=== PATIENT | male | born 1980 | race Caucasian/White ===

== ENCOUNTER 2018-10-27 18:42 | Inpatient (IN) | payer MEDICAID, OTHER ==
[~2018-10-27] VITALS: Ht 180.3 cm; Wt 91.1 kg
[2018-10-27] MEDS ORDERED: SOD CHLORIDE 0.9% 1,000 ML IV STA (19:13)
[2018-10-27] MEDS ORDERED: HYDROmorphONE 1 MG/ML SYG ONE (19:15)
[2018-10-27] MEDS ORDERED: ONDANSETRON 4 MG INJ ONE (19:15)
[2018-10-27] MEDS: CEFTRIAXONE 2 GM/50 ML (PMX) 50 ML IVPB ONE ×2 (19:22→20:41)
[2018-10-27] MEDS ORDERED: HYDROmorphONE 2 MG/ML SYG IV ONE (19:30)
[2018-10-27] MEDS ORDERED: ONDANSETRON 4 MG INJ IV ONE (19:30)
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
[2018-10-27] MEDS ORDERED: TETANUS IMMUNE GLOB 250 UNIT SYG IM ONE (21:00)
[2018-10-27] MEDS ORDERED: SOD CHLORIDE 0.9% 1,000 ML IV SCH (21:06)
[2018-10-27] MEDS ORDERED: ACETAMINOPHEN 325 MG TAB PO PRN (21:30)
[2018-10-27] MEDS ORDERED: ONDANSETRON 4 MG INJ IV PRN (21:30)
[2018-10-27] MEDS ORDERED: NACL 0.9% 3 ML SYG IV SCH (21:30)
[2018-10-27] MEDS: HYDROmorphONE 0.5 MG/0.5 ML SYG IV PRN (21:47)
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
[2018-10-27] MEDS ORDERED: HYDROmorphONE 1 MG/ML SYG IV ONE (23:00)
[2018-10-28] VITALS (20 sets, daily range): BP systolic 105–129; BP diastolic 53–79; PULSE 90–117; RESP 14–26; Ht 180.3 cm; Wt 91.1 kg
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
[2018-10-28] MEDS: HYDROmorphONE 0.5 MG/0.5 ML SYG IV PRN ×2 (01:53→05:58)
[2018-10-28] MEDS ORDERED: DESFLURANE 15 MIN ONE (07:00)
[2018-10-28] MEDS ORDERED: CEFAZOLIN 1 GM INJ ONE (07:00)
[2018-10-28] MEDS ORDERED: POLYMYXIN/BACITRACIN 1L IRRIG ONE ×2 (08:20→16:28)
--- NOTE | 2018-10-28 09:02 | PREAC ---
Date/Time of Note Date/Time of Note DATE: 10/28/18 TIME: 08:59 Anesthesia Eval and Record Evaluation Time Pre-Procedure Interview DATE: 10/28/18 TIME: 08:59 Age 38 Sex male NPO: 8 hrs Preoperative diagnosis Left arm, right leg fx Planned procedure ORIF L arm, R leg Past Medical History Past Medical History: None Surgery & Anesthesia Issues No known issue Meds Anticoagulation: No Beta Chastity within 24 hr: No Reason Beta Chastity not given: Pt. not on B-Chastity Current Medications Sodium Chloride 1,000 ml @ 80 mls/hr [id number] IV Last administered on 10/27/18at 21:41; Admin Dose 80 MLS/HR; Start 10/27/18 at 21:06; Stop 10/28/18 at 09:35 Ondansetron HCl (Zofran Inj) 4 mg BRIDGE ORDER PRN IV NAUSEA/VOMITING; Start 10/27/18 at 21:30; Stop 10/28/18 at 21:29 Acetaminophen (Tylenol Tab) 650 mg ER BRIDGE PRN PO .MILD PAIN 1-3 OR TEMP; Start 10/27/18 at 21:30; Stop 10/28/18 at 21:29 IV Flush (NS 3 ml) 3 ml PER PROTOCOL IV ; Start 10/27/18 at 21:30 Hydromorphone HCl (Dilaudid) 0.5 mg Q4H PRN IV .SEVERE PAIN 7-10 Last administered on 10/28/18at 05:58; Admin Dose 0.5 MG; Start 10/27/18 at 21:30 Influenza Virus Vaccine Quadrival (Fluzone) 0.5 ml ONCE ONCE IM* ; Start 10/29/18 at 10:00; Stop 10/29/18 at 10:01 Meds reviewed: Yes Allergies Coded Allergies: No Known Allergy (Unverified , 10/27/18) Allergies Reviewed: Yes Labs/Studies Labs Reviewed: Reviewed by anesthesiologist Result Diagram: 10/28/1844310/28/18443 Laboratory Tests 10/28/18 04:44 test: N/A Studies: ECG (n/a), CXR (n/a) Pre-procedure Exam Last vitals Vital Signs Date Temp Pulse Resp B/P (MAP) Pulse Ox O2 O2 Flow FiO2 Time Delivery Rate 2/24/19 98.7 95 16 124/57 97 07:26 (79) 10/28/18 Room Air 00:34 Airway: Adequate mouth opening Mallampati: Mallampati I Teeth: Normal Lung: Normal Heart: Normal ASA Physical Status ASA physical status: 2 Emergency: None Planned Anesthetic General/MAC: ETT Neuraxial: Spinal Nerve block: Femoral (right), Sciatic (right), Brachial plexus (left) Planned Pain Management Single shot nerve block Pre-operative Attestations Prior to commencing anesthesia and surgery, the patient was re-evaluated, there was verification of: *The patient's identity *The results of appropriate recent lab work and preoperative vital signs *The above evaluation not changing prior to induction *Anesthetic plan, risk benefits, alternative and complications discussed with patient/family; questions answered; patient/family understands, accepts and wishes to proceed. NATHAN MENDIETA MD Oct 28, 2018 09:02
[2018-10-28] MEDS ORDERED: HYDROmorphONE 1 MG/5 ML IV SYRINGE IV ONE (09:08)
[2018-10-28] MEDS ORDERED: morphine SULFATE/PF (10 MG/10 ML) INJ ONE (09:12)
[2018-10-28] MEDS ORDERED: MIDAZOLAM 1 MG/ML 2 ML INJ ONE (09:12)
[2018-10-28] MEDS ORDERED: ROPIVACAINE 0.5 % 30 ML VIAL ONE (09:12)
[2018-10-28] MEDS ORDERED: METOCLOPRAMIDE 10 MG INJ ONE (09:12)
[2018-10-28] MEDS ORDERED: ROPIVACAINE 0.2% 20 ML VIAL ONE (09:12)
[2018-10-28] MEDS ORDERED: ONDANSETRON 4 MG INJ ONE (09:12)
[2018-10-28] MEDS ORDERED: PROPOFOL 20 ML ONE (09:12)
[2018-10-28] MEDS ORDERED: ROCURONIUM 50 MG INJ ONE (09:12)
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
[2018-10-28] MEDS ORDERED: HYDROmorphONE 1 MG/5 ML IV SYRINGE IV PRN ×3 (15:30)
[2018-10-28] MEDS ORDERED: ONDANSETRON 4 MG INJ IV PRN (15:30)
[2018-10-28] MEDS ORDERED: DIPHENHYDRAMINE 50 MG INJ IV PRN (15:30)
[2018-10-28] MEDS ORDERED: MEPERIDINE 25 MG INJ IV PRN (15:30)
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
[2018-10-28] MEDS: ACETAMINOPHEN 500 MG TAB PO SCH (18:09)
[2018-10-28] MEDS: CEFAZOLIN 2 GM/50 ML (PMX) 50 ML IVPB SCH (21:05)
--- NOTE | 2018-10-28 21:59 | PAC ---
Date/Time of Note Date/Time of Note DATE: 10/28/18 TIME: 21:59 Post-Anesthesia Notes Post-Anesthesia Note Last documented vital signs Vital Signs Date Temp Pulse Resp B/P (MAP) Pulse Ox O2 O2 Flow FiO2 Time Delivery Rate 10/28/18 99.1 100 18 111/59 98 Room Air 19:11 (76) 10/28/18 2.0 16:21 Activity: WNL Respiratory function: WNL Cardiovascular function: WNL Mental status: Baseline Pain reasonably controlled: Yes Hydration appropriate: Yes Nausea/Vomiting absent: No NATHAN MENDIETA MD Oct 28, 2018 21:59
[2018-10-28] MEDS: oxyCODONE 15 MG TAB PO PRN (23:13)
[2018-10-29] VITALS (7 sets, daily range): BP systolic 113–132; BP diastolic 57–64; PULSE 89–110; RESP 16–18
[2018-10-29] MEDS: ACETAMINOPHEN 500 MG TAB PO SCH ×3 (00:59→16:14)
[2018-10-29] MEDS: HYDROmorphONE 1 MG/ML SYG IV PRN ×2 (01:18→08:10)
[2018-10-29] MEDS: oxyCODONE 15 MG TAB PO PRN ×3 (04:45→22:10)
[2018-10-29] MEDS: CEFAZOLIN 2 GM/50 ML (PMX) 50 ML IVPB SCH ×3 (05:32→21:22)
[2018-10-29] MEDS: ENOXAPARIN 40 MG/0.4 ML SYG SC SCH (08:15)
[2018-10-29] MEDS ORDERED: morphine 4 MG/ML VIAL IV PRN (12:00)
[2018-10-29] MEDS: DIPHENHYDRAMINE 50 MG INJ IV PRN ×2 (12:17→18:53)
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
[2018-10-30] MEDS: ACETAMINOPHEN 500 MG TAB PO SCH ×3 (00:56→16:30)
[2018-10-30] MEDS: DIPHENHYDRAMINE 50 MG INJ IV PRN ×3 (00:59→15:32)
[2018-10-30 01:58] VITALS: BP 126/58; PULSE 107; RESP 18
[2018-10-30] MEDS: CEFAZOLIN 2 GM/50 ML (PMX) 50 ML IVPB SCH ×2 (05:17→15:31)
[2018-10-30] MEDS: oxyCODONE 15 MG TAB PO PRN ×4 (05:44→20:34)
[2018-10-30 07:24] VITALS: BP 121/62; PULSE 96; RESP 19
[2018-10-30] MEDS: ENOXAPARIN 40 MG/0.4 ML SYG SC SCH (08:29)
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
[2018-10-30 19:17] VITALS: BP 113/66; PULSE 97; RESP 16
[2018-10-30] MEDS: DIPHENHYDRAMINE 25 MG CAP PO PRN (21:42)
[2018-10-31] MEDS: ACETAMINOPHEN 500 MG TAB PO SCH ×3 (00:25→17:02)
[2018-10-31 02:06] VITALS: BP 110/60; PULSE 85; RESP 18
[2018-10-31] MEDS: oxyCODONE 15 MG TAB PO PRN ×2 (02:49→20:43)
[2018-10-31] MEDS: DIPHENHYDRAMINE 25 MG CAP PO PRN ×2 (03:53→16:15)
[2018-10-31] MEDS: AMOXICILLIN/CLAV 875 MG TAB PO SCH ×2 (05:41→20:43)
[2018-10-31 08:05] VITALS: BP 119/66; PULSE 90; RESP 18
[2018-10-31] MEDS: oxyCODONE 5 MG TAB PO PRN ×3 (08:10→13:40)
[2018-10-31] MEDS: ENOXAPARIN 40 MG/0.4 ML SYG SC SCH (09:42)
[2018-10-31] MEDS ORDERED: VITAMIN A & D 5 GM OINT PACKET TOP ONE (11:11)
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
[2018-10-31 15:24] VITALS: BP 124/64; PULSE 97; RESP 18
[2018-10-31 19:15] VITALS: BP 110/61; PULSE 85; RESP 20
[2018-11-01] MEDS: ACETAMINOPHEN 500 MG TAB PO SCH ×3 (00:23→17:36)
[2018-11-01] MEDS: DIPHENHYDRAMINE 25 MG CAP PO PRN ×3 (00:24→19:29)
[2018-11-01] MEDS: oxyCODONE 15 MG TAB PO PRN ×4 (01:00→14:27)
[2018-11-01 02:05] VITALS: BP 109/60; PULSE 85; RESP 18
[2018-11-01] MEDS: AMOXICILLIN/CLAV 875 MG TAB PO SCH ×2 (08:38→20:50)
[2018-11-01] MEDS: ENOXAPARIN 40 MG/0.4 ML SYG SC SCH (08:39)
[2018-11-01 08:54] VITALS: BP 128/61; PULSE 83; RESP 18
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
[2018-11-01 14:15] VITALS: BP 127/75; PULSE 87; RESP 18
[2018-11-01 19:54] VITALS: BP 120/65; PULSE 74; RESP 20
[2018-11-01] MEDS: oxyCODONE 5 MG TAB PO PRN (20:55)
[2018-11-02] MEDS: ACETAMINOPHEN 500 MG TAB PO SCH ×3 (00:20→16:40)
[2018-11-02 02:36] VITALS: BP 122/62; PULSE 72; RESP 20
[2018-11-02] MEDS: oxyCODONE 15 MG TAB PO PRN ×4 (04:45→23:41)
[2018-11-02 08:12] VITALS: BP 113/63; PULSE 74; RESP 20
[2018-11-02] MEDS: AMOXICILLIN/CLAV 875 MG TAB PO SCH ×2 (08:53→20:59)
[2018-11-02] MEDS: ENOXAPARIN 40 MG/0.4 ML SYG SC SCH (08:54)
[2018-11-02] MEDS: DIPHENHYDRAMINE 25 MG CAP PO PRN ×3 (11:23→23:41)
[2018-11-02 14:15] VITALS: BP 128/73; PULSE 74; RESP 16
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
[2018-11-02 20:05] VITALS: BP 114/66; PULSE 77; RESP 20
[2018-11-03] MEDS: ACETAMINOPHEN 500 MG TAB PO SCH ×4 (00:31→16:36)
[2018-11-03 02:06] VITALS: BP 116/72; PULSE 71; RESP 18
[2018-11-03] MEDS: DIPHENHYDRAMINE 25 MG CAP PO PRN ×4 (06:16→23:35)
[2018-11-03] MEDS: oxyCODONE 15 MG TAB PO PRN ×4 (06:16→23:35)
[2018-11-03 07:31] VITALS: BP 122/63; PULSE 73; RESP 18
[2018-11-03] MEDS: AMOXICILLIN/CLAV 875 MG TAB PO SCH ×2 (08:57→20:36)
[2018-11-03] MEDS: ENOXAPARIN 40 MG/0.4 ML SYG SC SCH (08:58)
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
[2018-11-03 14:51] VITALS: BP 121/77; PULSE 79; RESP 18
[2018-11-03 20:25] VITALS: BP 111/62; PULSE 71; RESP 20
[2018-11-04] MEDS: ACETAMINOPHEN 500 MG TAB PO SCH ×3 (00:33→15:46)
[2018-11-04 02:07] VITALS: BP 115/62; PULSE 69; RESP 17
[2018-11-04] MEDS: DIPHENHYDRAMINE 25 MG CAP PO PRN ×3 (06:17→22:33)
[2018-11-04] MEDS: oxyCODONE 15 MG TAB PO PRN ×2 (06:18→10:07)
[2018-11-04] MEDS: AMOXICILLIN/CLAV 875 MG TAB PO SCH ×2 (08:27→20:00)
[2018-11-04] MEDS: ENOXAPARIN 40 MG/0.4 ML SYG SC SCH (08:28)
[2018-11-04 08:42] VITALS: BP 127/67; PULSE 89; RESP 20
[2018-11-04 15:16] VITALS: BP 117/64; PULSE 73; RESP 16
[2018-11-04] MEDS: oxyCODONE 5 MG TAB PO PRN ×2 (15:50→22:30)
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
[2018-11-04 19:20] VITALS: BP 119/57; PULSE 72; RESP 16
[2018-11-05] MEDS: ACETAMINOPHEN 500 MG TAB PO SCH ×3 (00:30→13:49)
[2018-11-05 01:22] VITALS: BP 110/56; PULSE 69; RESP 16
[2018-11-05 07:16] VITALS: BP 124/61; PULSE 63; RESP 18
[2018-11-05] MEDS: oxyCODONE 15 MG TAB PO PRN (08:41)
[2018-11-05] MEDS: AMOXICILLIN/CLAV 875 MG TAB PO SCH ×2 (08:41→20:16)
[2018-11-05] MEDS: ENOXAPARIN 40 MG/0.4 ML SYG SC SCH (08:51)
[2018-11-05] MEDS: DIPHENHYDRAMINE 25 MG CAP PO PRN ×2 (09:29→20:20)
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
[2018-11-05 15:05] VITALS: BP 126/59; PULSE 77; RESP 18
[2018-11-05] MEDS: oxyCODONE 5 MG TAB PO PRN (18:29)
[2018-11-05 19:16] VITALS: BP 121/65; PULSE 81; RESP 16
[2018-11-05] MEDS: IBUPROFEN 400 MG TAB PO PRN (20:20)
[2018-11-06] MEDS: ACETAMINOPHEN 500 MG TAB PO SCH ×3 (01:00→16:30)
[2018-11-06 01:31] VITALS: BP 120/59; PULSE 74; RESP 16
[2018-11-06 07:24] VITALS: BP 115/57; PULSE 71; RESP 18
[2018-11-06] MEDS: DIPHENHYDRAMINE 25 MG CAP PO PRN ×2 (08:11→15:45)
[2018-11-06] MEDS: AMOXICILLIN/CLAV 875 MG TAB PO SCH ×2 (08:11→21:22)
[2018-11-06] MEDS: ENOXAPARIN 40 MG/0.4 ML SYG SC SCH (08:14)
[2018-11-06] MEDS: oxyCODONE 5 MG TAB PO PRN ×2 (10:35→15:45)
[2018-11-06] MEDS: IBUPROFEN 400 MG TAB PO PRN (14:02)
[2018-11-06 14:28] VITALS: BP 111/56; PULSE 76; RESP 18
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
[2018-11-06] MEDS ORDERED: LORAZEPAM 2 MG INJ IV PRN (17:30)
[2018-11-06 19:40] VITALS: BP 114/82; PULSE 76; RESP 18
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
[2018-11-07] MEDS: ACETAMINOPHEN 500 MG TAB PO SCH ×3 (00:06→17:14)
[2018-11-07 02:02] VITALS: BP 105/58; PULSE 59; RESP 18
[2018-11-07] MEDS: oxyCODONE 5 MG TAB PO PRN (07:27)
[2018-11-07 08:02] VITALS: BP 115/62; PULSE 70; RESP 18
[2018-11-07] MEDS: AMOXICILLIN/CLAV 875 MG TAB PO SCH ×2 (10:23→20:42)
[2018-11-07] MEDS: ENOXAPARIN 40 MG/0.4 ML SYG SC SCH (10:25)
[2018-11-07] MEDS: DIPHENHYDRAMINE 25 MG CAP PO PRN (10:28)
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
[2018-11-07 14:00] VITALS: BP 120/70; PULSE 74; RESP 18
[2018-11-07 19:57] VITALS: BP 122/62; PULSE 77; RESP 20
[2018-11-07] MEDS: IBUPROFEN 400 MG TAB PO PRN (20:42)
[2018-11-08] MEDS: ACETAMINOPHEN 500 MG TAB PO SCH ×2 (00:53→09:17)
[2018-11-08 01:19] VITALS: BP 113/68; PULSE 71; RESP 17
[2018-11-08] MEDS: DIPHENHYDRAMINE 25 MG CAP PO PRN ×2 (06:47→18:26)
[2018-11-08] MEDS: IBUPROFEN 400 MG TAB PO PRN (07:05)
[2018-11-08 08:11] VITALS: BP 108/61; PULSE 61; RESP 18
[2018-11-08] MEDS: AMOXICILLIN/CLAV 875 MG TAB PO SCH (09:17)
[2018-11-08] MEDS: ENOXAPARIN 40 MG/0.4 ML SYG SC SCH (09:19)
[2018-11-08] MEDS: oxyCODONE 5 MG TAB PO PRN ×2 (10:11→18:26)
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
[2018-11-08 14:59] VITALS: BP 117/53; PULSE 73; RESP 18
[2018-11-08 19:56] VITALS: BP 112/56; PULSE 77; RESP 20
[2018-11-09] MEDS: oxyCODONE 5 MG TAB PO PRN ×4 (01:30→22:04)
[2018-11-09] MEDS: DIPHENHYDRAMINE 25 MG CAP PO PRN ×2 (01:30→21:58)
[2018-11-09 02:23] VITALS: BP 114/58; PULSE 74; RESP 17
[2018-11-09 07:26] VITALS: BP 103/61; PULSE 65; RESP 18
[2018-11-09] MEDS: ENOXAPARIN 40 MG/0.4 ML SYG SC SCH (08:47)
[2018-11-09 14:18] VITALS: BP 123/58; PULSE 71; RESP 18
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
[2018-11-09 19:10] VITALS: BP 121/56; PULSE 77; RESP 20
[2018-11-10 02:00] VITALS: BP 105/59; PULSE 67; RESP 20
[2018-11-10] MEDS: oxyCODONE 5 MG TAB PO PRN ×4 (03:57→16:28)
[2018-11-10] MEDS: DIPHENHYDRAMINE 25 MG CAP PO PRN (03:57)
[2018-11-10 08:00] VITALS: BP 107/57; PULSE 68; RESP 19
[2018-11-10] MEDS: ENOXAPARIN 40 MG/0.4 ML SYG SC SCH (08:52)
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
[2018-11-10] MEDS: IBUPROFEN 400 MG TAB PO PRN (14:34)
[2018-11-10 15:03] VITALS: BP 115/53; PULSE 74; RESP 18
[2018-11-10] MEDS ORDERED: oxyCODONE 15 MG TAB PO PRN (16:00)
[2018-11-10] MEDS: ACETAMINOPHEN 500 MG TAB PO SCH (16:27)
[2018-11-10 19:10] VITALS: BP 110/58; PULSE 72; RESP 18
[2018-11-11 02:00] VITALS: BP 107/56; PULSE 66; RESP 18
[2018-11-11] MEDS: oxyCODONE 5 MG TAB PO PRN ×2 (07:34→19:29)
[2018-11-11 07:49] VITALS: BP 110/55; PULSE 71; RESP 18
[2018-11-11] MEDS: ACETAMINOPHEN 500 MG TAB PO SCH ×4 (09:30→23:57)
[2018-11-11] MEDS: ENOXAPARIN 40 MG/0.4 ML SYG SC SCH (09:31)
[2018-11-11] MEDS: IBUPROFEN 400 MG TAB PO PRN (13:55)
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
[2018-11-11 15:31] VITALS: BP 132/74; PULSE 77
[2018-11-11 19:14] VITALS: BP 103/55; PULSE 70; RESP 16
--- NOTE | 2018-11-11 21:34 | PN ---
Date/Time of Note Date/Time of Note DATE: 11/11/18 TIME: 21:30 Assessment/Plan Lines/Catheters IV Catheter Type (from Nrsg): Saline Lock Lux in Place (from Nrsg): No Assessment/Plan Chief Complaint/Hosp Course POD#13. Overall he is doing very well. His 2-week postop check was performed today. All incisions are healing well with no signs of infection. [place] were removed. -Replaced splints of left upper extremity -Right lower extremity dressing change PRN -Post op H&H stable -PT/OT -Pain control -DVT prophylaxis: SCD's, Lovenox 40 mg daily for 6 weeks -Weight bearing status: WBAT for RLE: WB through forearm RUE, WB through elbow LUE -Post-op XR ordered - Abx: complete -Diet: regular -Lux: DCed -Discharge planning consult Planned Discharge Date: Plan is for patient to either fly to [place] to stay with his sister versus securing care locally. Subjective 24 Hr Interval Summary patient doing well No acute events overnight Pain is well controlled Exam/Review of Systems Vital Signs Vitals Vital Signs Date Temp Pulse Resp B/P (MAP) Pulse Ox O2 O2 Flow FiO2 Time Delivery Rate 11/11/18 98.3 70 16 103/55 99 Room Air 19:14 (71) Intake and Output 11/10/18 11/10/18 11/11/18 1515:00 23:00 07:00 IntakeIntake Total 840 ml 360 ml OutputOutput Total 1100 ml 1600 ml BalanceBalance -260 ml 360 ml -1600 ml Exam Free Text/Dictation BUE: Splints clean, dry, intact. Sensation intact to light touch over fingertips. Patient is able to wiggle fingers. Brisk cap refill over all digits. Splint over left upper extremity removed and incision over left ulna is clean, dry, intact. Right lower extremity: Incisions: Clean, dry, and intact, no erythema Sensation intact to light touch in a sural, saphenous, deep peroneal, sup erficial peroneal, medial and lateral plantar nerve distribution. Motor is intact, patient able to dorsiflex and plantarflex ankle and extend and flex great toe. Dorsalis Pedis pulse +2, Brisk capillary refill. Compartments are soft. Calves non-tender to palpation bilaterally. Results Results Last 24 Hrs 2 views of the right tibia were obtained for postoperative 2-week visit: Status post IM sara of the right tibia. Reduction is maintained. No acute complication. 3 views of bilateral hands: No interval displacement of left ring metacarpal fracture and no interval displacement of right middle metacarpal neck fracture. 2 views left forearm: Status post open reduction internal fixation of left ulna. Reduction is maintained. No acute hardware complication. BHAKTI NOLASCO MD Nov 11, 2018 21:34
[2018-11-12 01:13] VITALS: BP 104/51; PULSE 58; RESP 16
[2018-11-12 07:34] VITALS: BP 128/66; RESP 18
[2018-11-12] MEDS: oxyCODONE 5 MG TAB PO PRN ×2 (08:39→20:43)
[2018-11-12] MEDS: ACETAMINOPHEN 500 MG TAB PO SCH ×2 (08:41→16:44)
[2018-11-12] MEDS: ENOXAPARIN 40 MG/0.4 ML SYG SC SCH (08:41)
[2018-11-12 14:55] VITALS: BP 119/68; PULSE 72; RESP 20
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
[2018-11-12 19:25] VITALS: BP 117/59; PULSE 73; RESP 16
[2018-11-13] MEDS: ACETAMINOPHEN 500 MG TAB PO SCH ×3 (00:03→16:01)
[2018-11-13 01:14] VITALS: BP 110/55; PULSE 62; RESP 16
[2018-11-13] MEDS: oxyCODONE 5 MG TAB PO PRN ×2 (08:03→20:41)
[2018-11-13 08:37] VITALS: BP 114/56; PULSE 66; RESP 18
[2018-11-13] MEDS: ENOXAPARIN 40 MG/0.4 ML SYG SC SCH (09:13)
[2018-11-13 14:35] VITALS: BP 123/82; PULSE 74; RESP 18
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
[2018-11-13 20:38] VITALS: BP 127/60; PULSE 82; RESP 19
[2018-11-14] MEDS: ACETAMINOPHEN 500 MG TAB PO SCH ×5 (00:58→23:47)
[2018-11-14 02:23] VITALS: BP 131/64; PULSE 79; RESP 18
[2018-11-14] MEDS: oxyCODONE 5 MG TAB PO PRN (06:12)
[2018-11-14 08:30] VITALS: BP 113/59; PULSE 98; RESP 18
[2018-11-14] MEDS: ENOXAPARIN 40 MG/0.4 ML SYG SC SCH (08:33)
[2018-11-14 14:33] VITALS: BP 110/59; PULSE 76; RESP 18
[2018-11-14] MEDS ORDERED: ENOX40DI2 SC (16:17)
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
[2018-11-14 19:15] VITALS: BP 106/61; PULSE 83; RESP 20
[2018-11-15 02:05] VITALS: BP 117/63; PULSE 69; RESP 18
[2018-11-15 07:25] VITALS: BP 106/63; PULSE 89; RESP 18
[2018-11-15] MEDS: oxyCODONE 5 MG TAB PO PRN ×2 (09:17→21:58)
[2018-11-15] MEDS: ENOXAPARIN 40 MG/0.4 ML SYG SC SCH (09:18)
[2018-11-15] MEDS: ACETAMINOPHEN 500 MG TAB PO SCH ×2 (09:18→16:00)
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
[2018-11-15 14:29] VITALS: BP 122/60; PULSE 71; RESP 18
[2018-11-15 20:08] VITALS: BP 113/64; PULSE 67; RESP 18
[2018-11-15] MEDS ORDERED: HYDROCODONE/APAP (5/325) TAB PO PRN (20:30)
[2018-11-15] MEDS: HYDROCODONE/APAP (5/325) TAB PO PRN (20:34)
[2018-11-16] MEDS: IBUPROFEN 400 MG TAB PO PRN ×2 (01:32→20:53)
[2018-11-16 02:17] VITALS: BP 112/59; PULSE 67; RESP 18
[2018-11-16] MEDS: HYDROCODONE/APAP (5/325) TAB PO PRN ×3 (02:54→22:03)
[2018-11-16 07:43] VITALS: BP 99/55; PULSE 65; RESP 18
[2018-11-16] MEDS: ACETAMINOPHEN 500 MG TAB PO SCH ×4 (08:00→23:35)
[2018-11-16] MEDS: ENOXAPARIN 40 MG/0.4 ML SYG SC SCH (09:09)
[2018-11-16] MEDS: oxyCODONE 5 MG TAB PO PRN ×2 (10:19→23:35)
[2018-11-16 14:00] VITALS: BP 114/58; PULSE 68; RESP 18
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
[2018-11-16 20:30] VITALS: BP 121/67; PULSE 72; RESP 18
[2018-11-17 02:30] VITALS: BP 121/59; PULSE 60; RESP 18
[2018-11-17] MEDS: IBUPROFEN 400 MG TAB PO PRN (06:53)
[2018-11-17] MEDS: ENOXAPARIN 40 MG/0.4 ML SYG SC SCH (08:07)
[2018-11-17] MEDS: ACETAMINOPHEN 500 MG TAB PO SCH (08:21)
== END 2018-11-17 08:30 | disposition home or self-care (01) | DRG 493 ==
LOC: E/R 18:42 → 2NE 21:08 → MS1 10-28 17:28
PROVIDERS: ADMIT Internal Medicine; ATTEND Internal Medicine
PROC: 0HDKXZZ Extraction of Right Lower Leg Skin, External Approach (ICD-10-PCS; 2018-10-27)
PROC: 0HDEXZZ Extraction of Left Lower Arm Skin, External Approach (ICD-10-PCS; 2018-10-27)
PROC: 0PSQXZZ Reposition Left Metacarpal, External Approach (ICD-10-PCS; 2018-10-28)
PROC: 0PSPXZZ Reposition Right Metacarpal, External Approach (ICD-10-PCS; 2018-10-28)
PROC: 0QSG04Z Reposition Right Tibia with Internal Fixation Device, Open Approach (ICD-10-PCS; principal; 2018-10-28 10:00)
PROC: 0PSL04Z Reposition Left Ulna with Internal Fixation Device, Open Approach (ICD-10-PCS; 2018-10-28 10:00)
DX: S82.191B Other fracture of upper end of right tibia, initial encounter for open fracture type I or II (principal); S52.222A Displaced transverse fracture of shaft of left ulna, initial encounter for closed fracture; S62.332A Displaced fracture of neck of third metacarpal bone, right hand, initial encounter for closed fracture; S62.325A Displaced fracture of shaft of fourth metacarpal bone, left hand, initial encounter for closed fracture; S09.90XA Unspecified injury of head, initial encounter; S20.219A Contusion of unspecified front wall of thorax, initial encounter; S30.1XXA Contusion of abdominal wall, initial encounter; G89.18 Other acute postprocedural pain; Y08.02XA Assault by strike by baseball bat, initial encounter; Y92.039 Unspecified place in apartment as the place of occurrence of the external cause; Z23 Encounter for immunization
CPT/HCPCS: 70450; 71045; 73090; 73550; 73562; 73590; 80053; 83036; 85025; 87086; 90389; 90686; 96374; 96375; 97110; 97116; 97162; 97167; 97530; 97535; C1713; J0690; J0696; J1170; J1200; J1650; J2250; J2270; J2274; J2405; J2765; J2795; J7030